=== PATIENT | male | born 1950 | race Caucasian/White ===

== ENCOUNTER 2019-03-29 05:35 | Emergency (ER) | payer OTHER ==
[~2019-03-29] VITALS: Ht 180.3 cm; Wt 88.0 kg
[~2019-03-29 05:35] MED LIST: HYDROCHLOROTHIA25 MG PO; LISINOPRIL-HCT1 EAC2 PO; LUBRICANT EYE1 EACH OPTH; NAPROXEN SODIU220 M1 PO; NORCO 5-325 TA1 EACH PO; OMEPRAZOLE20 MG PO; PRAVACHOL40 MG PO; PROBIOTIC1 EAC1 PO; VITAMIN D22000 UNIT PO
[2019-03-29] MEDS ORDERED: CRUTCH1 EACH MISC (07:21)
[2019-03-29] MEDS ORDERED: NORCO 5-325 TA1 EACH PO (07:21)
--- NOTE | 2019-03-29 19:15 | EKG ---
[facility] [address] [facility] [place], [place] [address] Signed Sinus rhythm with 1st degree AV block Otherwise normal ECG No previous ECGs available Confirmed by JAIME PEREA MD [id number] on 03/29/2019 7:15:13 PM Electronically Signed By: JAIME PEREA MD 03/29/19 1915 PATIENT NAME: EHSAN CARTER Electrocardiogram DATE OF : 52 PHYSICIAN: JAIME PEREA MD REPORT #: [id number] REPORT IS CONFIDENTIAL AND NOT TO BE RELEASED WITHOUT AUTHORIZATION
== END 2019-03-29 07:56 | disposition home or self-care (01) ==
LOC: ED 05:35
PROC: 2W3SX1Z Immobilization of Right Foot using Splint (ICD-10-PCS; principal; 2019-03-29)
DX: R55 Syncope and collapse (principal); S82.831A Other fracture of upper and lower end of right fibula, initial encounter for closed fracture; I10 Essential (primary) hypertension; Z85.46 Personal history of malignant neoplasm of prostate; Z90.49 Acquired absence of other specified parts of digestive tract; Z79.899 Other long term (current) drug therapy; W18.30XA Fall on same level, unspecified, initial encounter
CPT/HCPCS: 29515; 71046; 73610; 80053; 81001; 83735; 84443; 84484; 85025; 93005; 93010; 99284-25; G0480

== ENCOUNTER 2019-05-06 04:18 | Emergency (ER) | payer OTHER ==
[~2019-05-06] VITALS: Ht 180.3 cm; Wt 83.9 kg
[~2019-05-06 04:18] MED LIST changes: +CRUTCH1 EACH MISC; +DICLOFENAC SODI75 MG PO; +HYDROCODON-ACE1 EA11 PO; +SENNA LAX8.6 MG PO
--- OUTSIDE RECORDS SUMMARY | 2019-05-06 04:20 | XMS ---
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 Yamilet has no Care Guidelines for this patient. Caroline VISIT COUNT (12 MO.) 2 BREN Kulkarni TOTAL 2 NOTE: Visits indicate total known visits. ED/C VISIT TRACKING (12 MO.) 05/06/2019 04:18 [facility] [place] TYPE: Emergency COMPLAINT: - ALLERIC REACTION 03/29/2019 05:35 [facility] [place] TYPE: Emergency COMPLAINT: - R LEG INJURY/FALL DIAGNOSES: - Essential (primary) hypertension - Fall on same level, unspecified, initial encounter - Acquired absence of other specified parts of digestive tract - Other fracture of upper and lower end of right fibula, initial encounter for closed fracture - Syncope and collapse - Other senior living (current) drug therapy - Personal history of malignant neoplasm of prostate INPATIENT VISIT TRACKING (12 MO.) No inpatient visits to display in this time frame [email or web address]
== END 2019-05-06 06:25 | disposition home or self-care (01) ==
LOC: ED 04:18
DX: T78.3XXA Angioneurotic edema, initial encounter (principal); T44.6X5A Adverse effect of alpha-adrenoreceptor antagonists, initial encounter; T46.6X5A Adverse effect of antihyperlipidemic and antiarteriosclerotic drugs, initial encounter; T39.395A Adverse effect of other nonsteroidal anti-inflammatory drugs [NSAID], initial encounter; I10 Essential (primary) hypertension; Z85.46 Personal history of malignant neoplasm of prostate; Z88.8 Allergy status to other drugs, medicaments and biological substances; Z79.899 Other long term (current) drug therapy
CPT/HCPCS: 96374; 96375; 99283-25; J1200; J2930